=== PATIENT | male | born 1955 | race Caucasian/White ===

== ENCOUNTER 2023-05-05 12:02 | Outpatient (REF) | payer MEDICARE, OTHER, SELFPAY ==
--- NOTE | ~2023-05-05 | XR_ITS ---
EXAMINATION: XR SHOULDER, RIGHT CLINICAL INFORMATION: Pain. COMPARISON: None available. TECHNIQUE: Three views of the right shoulder. FINDINGS: Right shoulder arthroplasty. Age indeterminate periprosthetic fracture along the medial surface of the proximal right humerus. Mild superior subluxation of the humeral head prosthesis with respect to the glenoid. Nonspecific increased cortical lucency across the glenoid. Normal appearance of the acromioclavicular joint and coracoid process. Partially imaged right-sided ribs and right lung without significant abnormality. XR/XR shoulder RT min 2V IMPRESSION: 1. Age indeterminate periprosthetic fracture along the medial surface of the proximal right humerus. 2. Mild superior subluxation of the humeral head prosthesis with respect to the glenoid. 3. Increased cortical lucency of the glenoid, nonspecific may be related with prosthetic complication or degenerative changes. The report will be called to the ordering clinician by a [facility] Physician Deputy Prosecuting Attorney.
--- NOTE | ~2023-05-05 | XR_ITS ---
EXAMINATION: XR KNEE, LEFT XR KNEE AP STANDING CLINICAL INFORMATION: Pain. COMPARISON: None TECHNIQUE: Lateral and axial views of the left knee were obtained. AP bilateral standing view of the knees was obtained. FINDINGS: The lateral joint space compartment of the right knee is well-maintained. There is moderately severe narrowing of the medial joint space compartment of the right knee, with peripheral osteophyte formation. The lateral and medial joint of the left knee are well-maintained. There is slight narrowing and peripheral osteophyte formation of the patellofemoral compartment the left knee. No fracture, dislocation joint effusion is seen. XR/XR knee standing BI IMPRESSION: 1. No fracture, dislocation or joint effusion is seen. 2. There is moderately severe osteoarthritic change of the medial joint space compartment of the right knee. 3. There is minimal osteoarthritic change of the left patellofemoral compartment.
--- NOTE | ~2023-05-05 | XR_ITS ---
EXAMINATION: XR KNEE, LEFT XR KNEE AP STANDING CLINICAL INFORMATION: Pain. COMPARISON: None TECHNIQUE: Lateral and axial views of the left knee were obtained. AP bilateral standing view of the knees was obtained. FINDINGS: The lateral joint space compartment of the right knee is well-maintained. There is moderately severe narrowing of the medial joint space compartment of the right knee, with peripheral osteophyte formation. The lateral and medial joint of the left knee are well-maintained. There is slight narrowing and peripheral osteophyte formation of the patellofemoral compartment the left knee. No fracture, dislocation joint effusion is seen. XR/XR knee LT 2V IMPRESSION: 1. No fracture, dislocation or joint effusion is seen. 2. There is moderately severe osteoarthritic change of the medial joint space compartment of the right knee. 3. There is minimal osteoarthritic change of the left patellofemoral compartment.
== END 2023-05-05 12:03 | disposition home or self-care (01) ==
LOC: HO.HOSX 12:02
PROVIDERS: Visit Provider Orthopaedic Surgery
DX: M17.0 Bilateral primary osteoarthritis of knee (principal); Z96.611 Presence of right artificial shoulder joint
CPT/HCPCS: 20610; 73030; 73560; 73565; J0665; J1100

== ENCOUNTER 2023-05-05 12:19 | Outpatient (AMB) | payer MEDICARE, OTHER, SELFPAY ==
--- NOTE | 2023-05-05 12:39 | MHC.OFFVIS ---
Intake Vital Signs 05/05/23 12:40 Height 6 ft Intake Visit Reasons: [employer]-LT knee pain/probable sever OA Allergies No Known Allergies Allergy (Verified 05/05/23 12:41) HPI EN[employer] F[employer]ER-LT knee pain/probable sever OA HPI Details Alex is a a 67 year old male who presents today as a new patient with complaints of left knee pain. Patient reports that he has pain in bilateral knees, left worse than right. Pain increases with ambulation or increased activity as well as stairs. He is taking Oxycodone 15mg Q12H. He has has knee injections in the past but mostly for the right knee. The left knee pain is mostly medial and there is no associated injury. He also has pain in the right shoulder. He had a shoulder repalcement 10-15 years ago in [place]. He has difficulty with overhead activity but states it is tolerable . 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) Physical Exam Const General: cooperative, healthy appearing, no acute distress and well groomed Orientation/consciousness: oriented to person and oriented to place HEENT Head: Yes normal to inspection, Yes normocephalic and Yes atraumatic Eyes General: appearance normal, both eyes and all related structures Alignment and Position: alignment normal Conjunctivae: conjunctivae normal EOM: EOMs intact bilaterally Neck Neck: Yes normal visual inspection and Yes trachea midline Resp Other: No rerpiratory distress Effort & Inspection: normal respiratory effort and able to speak in complete sentences Cardio Other: Palpable radial pulse with no appreciable rythmic abnormalities GI Other: No abdominal distension Back/Spine/Pelvis Cervical Spine: normal cervical lordosis and cervical ROM normal Skin General skin exam: no rashes or lesions noted Neuro General: oriented to person, oriented to place and gait normal Extrem Other: TTP bilateral medial compartment and bilateral lateral retropatellar facet There is a trace effusion on the right and none of the left. There is neg Steinmen's Stable to v/v stress bilaterally. Right shoulder iwth ER to 25 deg 4/5 wekaness with [employer] c/d/i Office Procedures Joint Injection/Drain Joint Injection/Drain Details: Injected 1 mL of Decadron and 3 mL 1% lidocaine and 3 mL of 0.25% Marcaine. Site was prepped using aseptic technique. Patient tolerated the procedure well. Primary Site: right knee Secondary Site: left knee Approach Used: anterolateral Procedure: The patient tolerated the procedure well Coding - Large joint - Glenohumeral/Tronchanteric Bursa/Intraarticular Procedure code (CPT) selection complete Results Reviewed Results Reviewed: I personally reviewed relevant radiographs. Moderte tibiofemoral OA on the right Moderate-severe PF OA on the left Right shoulder with proximal migration of the prosthetic humeral head. No evidence of loosening Assessment & Plan Assessment & Plan (1) Localized osteoarthritis of knees, bilateral: Code(s): M17.0 - Bilateral primary osteoarthritis of knee Plan: Injected bilateral knees Discussed OA and recommend weight loss and stregthening Discussed PRP Follow up 3 mo (2) History of right shoulder replacement: Code(s): Z96.611 - Presence of right artificial shoulder joint Plan: I discussed my finding with Alex. He has right shoulder RTC deficiency in the setting of prior TSA. He states it is tolerable. If it becomes intolerable the surgical treatment would be conversion to a reverse. This is not appropriate yet. He understands this. Orders: Orders XR knee LT 2V 05/05/23 M25.569 - Pain in unspecified knee XR shoulder LT min 2V 05/05/23 M25.519 - Pain in unspecified shoulder XR knee standing BI 05/05/23 M25.569 - Pain in unspecified knee XR shoulder RT min 2V 05/05/23 M25.519 - Pain in unspecified shoulder Coding Level of Care Code New Pt Level 4 (80249) Diagnoses Localized osteoarthritis of knees, bilateral M17.0 History of right shoulder replacement Z96.611 CPT Codes Coding - Large joint: 99405 - Large joint ([id number]) Coding - Joint 7: 38476 - Glenohumeral/Tronchanteric Bursa/Intraarticular ([id number])
== END 2023-05-05 14:37 | disposition home or self-care (01) ==
PROVIDERS: PCP Family Medicine; Visit Provider Orthopaedic Surgery
DX: M17.0 Bilateral primary osteoarthritis of knee (principal); Z96.611 Presence of right artificial shoulder joint
CPT/HCPCS: 20610; 99204

== ENCOUNTER 2023-06-26 08:22 | Outpatient (AMB) | payer MEDICARE, OTHER, SELFPAY ==
--- NOTE | 2023-06-26 08:25 | A.OFFVIS_ITS ---
Vital Signs 06/26/23 08:26 Height 6 ft Weight 325 lb BMI 44.1 Intake Visit Reasons: O/V B/L knee pain s/p injection 05/05/23 Intake Note: Alex is a 67 year old male who presents today for a follow up of his Left Knee OA, Last Injection was done bilaterally on 05/05/23. PRP was discussed. Paidenis reports that the injection in the left knee was only helpful for about 2 days, and pain has significantly increased since then. The pain was so severe that he had to take a week from work and utilize a walker for ambulation. He is hoping to have an MRI The injection in the right knee however was helpful. Allergies No Known Allergies Allergy (Verified 05/05/23 12:41) HPI HPI O/V B/L knee pain s/p injection 05/05/23: Details: Alex is a 67 year old male who presents today for a follow up of his Left Knee OA, Last Injection was done bilaterally on 05/05/23. PRP was discussed. Paidenis reports that the injection in the left knee was only helpful for about 2 days, and pain has significantly increased since then. The pain was so severe that he had to take a week from work and utilize a walker for ambulation. He is hoping to have an MRI. The injection in the right knee however was helpful. 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 Lateral retropatellar TTP Assessment & Plan Assessment & Plan (1) Localized osteoarthritis of knees, bilateral: Code(s): M17.0 - Bilateral primary osteoarthritis of knee Category: Medical Plan: Steroid injections not helpful opn left. MOORE and possible PRP if not helpful. Plan We will submit for authorization for Euflexxa, Three series viscosupplementation as the cortisone was not helpful. We will contact patient once approval is recieved. Coding Level of Care Code Est Pt Level 3 (07650) Diagnoses Localized osteoarthritis of knees, bilateral M17.0
[2023-06-26 08:26] VITALS: BMI 44.1
== END 2023-06-26 08:59 | disposition home or self-care (01) ==
PROVIDERS: PCP Family Medicine; Visit Provider Orthopaedic Surgery
DX: M17.0 Bilateral primary osteoarthritis of knee (principal)
CPT/HCPCS: 99213

== ENCOUNTER → 2023-06-26 08:22 | Outpatient (BNVA) | payer OTHER, MEDICARE, SELFPAY | PROVIDERS: PCP Family Medicine; Visit Provider Orthopaedic Surgery ==

== ENCOUNTER 2023-07-28 12:01 | Outpatient (AMB) | payer MEDICARE, OTHER, SELFPAY ==
--- NOTE | 2023-07-28 12:09 | A.OFFVIS_ITS ---
Intake Visit Reasons: Left Knee Euflexxa #1 Intake Note: Alex is a 68 year old male who presents today for left knee Euflexxa injection #1 Allergies No Known Allergies Allergy (Verified 05/05/23 12:41) HPI HPI Left Knee Euflexxa #1: Details: Alex is a 68 year old male who presents today for left knee Euflexxa injection #1 PFSH Medical History (Updated 05/09/23 @ 11:52 by Sarthak Mccormack MD) Cardiac defibrillator in place Surgical History (Updated 05/09/23 @ 11:52 by Sarthak Mccormack MD) Hx of appendectomy Hx of cholecystectomy History of shoulder replacement (~2011) Social History (Updated 05/05/23 @ 12:45 by Stephanie Castillo CMA) Current occupational status: employed 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 Site was prepped using aseptic technique. Patient tolerated the procedure well. Primary Site: left knee Approach Used: anterolateral Coding - Large joint Procedure code (CPT) selection complete Assessment & Plan Assessment & Plan (1) Localized osteoarthritis of knees, bilateral: Code(s): M17.0 - Bilateral primary osteoarthritis of knee Category: Medical Plan I injected his left knee with Euflexxa 1 of 3, he will return next week for next injection of series Coding Level of Care Code Est Pt Level 2 (85248) Diagnoses Localized osteoarthritis of knees, bilateral M17.0 CPT Codes Coding - Large joint: 49877 - Large joint ([id number])
== END 2023-07-28 12:15 | disposition home or self-care (01) ==
PROVIDERS: PCP Family Medicine; Visit Provider Orthopaedic Surgery
DX: M17.0 Bilateral primary osteoarthritis of knee (principal)
CPT/HCPCS: 20610

== ENCOUNTER → 2023-07-28 12:01 | Outpatient (BNVA) | payer MEDICARE, OTHER, SELFPAY | PROVIDERS: PCP Family Medicine; Visit Provider Orthopaedic Surgery | DX: M17.0 Bilateral primary osteoarthritis of knee (principal) | CPT/HCPCS: 20610; J7323 ==

== ENCOUNTER 2023-08-04 13:50 | Outpatient (AMB) | payer MEDICARE, OTHER, SELFPAY ==
[2023-08-04 14:06] VITALS: BMI 31.9
--- NOTE | 2023-08-04 14:06 | A.OFFVIS_ITS ---
Vital Signs 08/04/23 14:06 Height 6 ft Weight 235 lb BMI 31.9 Intake Visit Reasons: Left Knee Euflexxa#2 Intake Note: Alex is a 68 year old male who presents today for his left knee Euflexxa #2. Patient reports that the fist injection has provided him with significant relief. Allergies No Known Allergies Allergy (Verified 05/05/23 12:41) PFSH Medical History (Updated 05/09/23 @ 11:52 by Sarthak Mccormack MD) Cardiac defibrillator in place Surgical History (Updated 05/09/23 @ 11:52 by Sarthak Mccormack MD) Hx of appendectomy Hx of cholecystectomy History of shoulder replacement (~2011) Social History (Updated 05/05/23 @ 12:45 by Stephanie Castillo CMA) Current occupational status: employed Current occupation: [employer] (Construction) Physical Exam Vital Signs: BMI result Body Mass Index 31.9 Extrem Other: skin c/d/i Office Procedures Joint Injection/Drain Joint Injection/Drain Details: Injected Euflexxa. Site was prepped using aseptic technique. Patient tolerated the procedure well. Coding - Large joint Procedure code (CPT) selection complete Assessment & Plan Assessment & Plan (1) Localized osteoarthritis of knees, bilateral: Code(s): M17.0 - Bilateral primary osteoarthritis of knee Category: Medical Plan: I injected his left knee with the 2nd of three Euflexxa Injections. He will return in one week for his final injection of the series. Coding Level of Care Code Est Pt Level 2 (83734) Diagnoses Localized osteoarthritis of knees, bilateral M17.0 CPT Codes Coding - Large joint: 38895 - Large joint ([id number])
== END 2023-08-04 14:24 | disposition home or self-care (01) ==
PROVIDERS: PCP Family Medicine; Visit Provider Orthopaedic Surgery
DX: M17.0 Bilateral primary osteoarthritis of knee (principal)
CPT/HCPCS: 20610

== ENCOUNTER → 2023-08-04 13:50 | Outpatient (BNVA) | payer MEDICARE, OTHER, SELFPAY | PROVIDERS: PCP Family Medicine; Visit Provider Orthopaedic Surgery | DX: M17.0 Bilateral primary osteoarthritis of knee (principal) | CPT/HCPCS: 20610; J7323 ==

== ENCOUNTER 2023-08-11 13:49 | Outpatient (AMB) | payer MEDICARE, OTHER, SELFPAY ==
--- NOTE | 2023-08-11 14:07 | A.OFFVIS_ITS ---
Vital Signs 08/11/23 14:09 Height 6 ft Weight 235 lb BMI 31.9 Intake Visit Reasons: Left Knee Euflexxa #3 Intake Note: Alex is a 68 year old male who presents today for his 3rd left knee Euflexxa injection. Patient reports he has been noticing improvement. Allergies No Known Allergies Allergy (Verified 08/11/23 14:09) HPI HPI Left Knee Euflexxa #3: Details: Alex is a 68 year old male who presents today for his 3rd left knee Euflexxa injection. Patient reports he has been noticing improvement. 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 Site was prepped using aseptic technique. Patient tolerated the procedure well. Primary Site: left knee Approach Used: anterolateral Coding - Large joint Procedure code (CPT) selection complete Assessment & Plan Assessment & Plan (1) Localized osteoarthritis of knees, bilateral: Code(s): M17.0 - Bilateral primary osteoarthritis of knee Category: Medical Plan: 3rd Euflexxa injection. May f/u in 3 months. Coding Level of Care Code Est Pt Level 2 (22529) Diagnoses Localized osteoarthritis of knees, bilateral M17.0 CPT Codes Coding - Large joint: 02476 - Large joint ([id number])
[2023-08-11 14:09] VITALS: BMI 31.9
== END 2023-08-11 14:25 | disposition home or self-care (01) ==
PROVIDERS: PCP Family Medicine; Visit Provider Orthopaedic Surgery
DX: M17.0 Bilateral primary osteoarthritis of knee (principal)
CPT/HCPCS: 20610

== ENCOUNTER → 2023-08-11 13:49 | Outpatient (BNVA) | payer MEDICARE, OTHER, SELFPAY | PROVIDERS: PCP Family Medicine; Visit Provider Orthopaedic Surgery | DX: M17.0 Bilateral primary osteoarthritis of knee (principal) | CPT/HCPCS: 20610; J7323 ==

== ENCOUNTER 2024-09-24 08:09 | Outpatient (REF) | payer MEDICARE, OTHER, SELFPAY ==
--- NOTE | ~2024-09-24 | XR_ITS ---
EXAMINATION: XR SHOULDER, LEFT CLINICAL INFORMATION: M25.512 - Pain in left shoulder COMPARISON: None available. TECHNIQUE: Three views of the left shoulder. FINDINGS: Axillary view is limited due to overlying soft tissues. There is inadequate coverage of the glenoid. Normal bone mineralization. No fracture, dislocation, or suspicious bone lesion. Normal alignment. The glenohumeral joint demonstrates mild degenerative arthritis. There is a subchondral cyst in the mid glenoid. The AC joint demonstrates mild superior surface spurring. There is a type II acromion. No undersurface spurring. The subacromial space is preserved. Left-sided single-lead pacer device noted in place. Remainder of the bony and soft tissue structures appear normal. XR/XR shoulder LT min 2V IMPRESSION: 1. No acute bony abnormalities of the left shoulder. 2. Mild degenerative arthritis in the glenohumeral joint and AC joint. Electronically signed by: Geremias Lopez MD 09/24/2024 09:09 AM EDT
--- OUTSIDE RECORDS SUMMARY | 2024-09-27 08:23 | XMS_ITS ---
Author Organization [facility] Care Team Providers Care Pediatric Ophthalmologist Name Role Phone Zion Moreland Unavailable Unavailable Allergies and adverse reactions Code CodeSystem Substance Reaction Severity StartDate Concern Status Codeine Unknown Unknown active Care Team Name Role Address Phone Organization Dates Zion Moreland [address] [place] [address], [phone], [place] (Office[place] : [facility] [place] 01/14/2010 - 01/16/2010 Mental Status Section Date Assessment Total Score Description 01/16/2010 BIMS 15 cognitively int act PHQ-9 00 Reason for Referral No Reasons for Referral Entered Social History Social History Observation Description Start Date End Date Code Code System Current Smoking Status Tobacco smoking consumption unknown [id number] SNOMED CT Sex Assigned At Male 1955 [address]-4 [facility] Gender Identity
== END 2024-09-24 08:10 | disposition home or self-care (01) ==
LOC: HO.HOSX 08:09
PROVIDERS: Visit Provider Physician Assistant
DX: M75.22 Bicipital tendinitis, left shoulder (principal); M19.012 Primary osteoarthritis, left shoulder
CPT/HCPCS: 20610; 73030; 99212; J1010; J2003

== ENCOUNTER 2024-09-24 08:45 | Outpatient (AMB) | payer MEDICARE, OTHER, SELFPAY ==
--- OUTSIDE RECORDS SUMMARY | 2024-09-24 08:56 | XMS_ITS ---
Author Organization [facility] Care Team Providers Care Pmp Name Role Phone Zion Moreland Unavailable Unavailable Allergies and adverse reactions Code CodeSystem Substance Reaction Severity StartDate Concern Status Codeine Unknown Unknown active Care Team Name Role Address Phone Organization Dates Zion Moreland [address] [place] [address], [phone], [place] (Office): : [facility] [place] 01/14/2010 - 01/16/2010 Mental Status Section Date Assessment Total Score Description 01/16/2010 BIMS 15 cognitively int act PHQ-9 00 Reason for Referral No Reasons for Referral Entered Social History Social History Observation Description Start Date End Date Code Code System Current Smoking Status Tobacco smoking consumption unknown 088225993 SNOMED CT Sex Assigned At Male 1955 [address]-0 [facility] Gender Identity
[2024-09-24 09:12] VITALS: BMI 44.8
--- NOTE | 2024-09-24 09:12 | A.OFFVIS_ITS ---
Vital Signs 09/24/24 09:12 Height 6 ft Weight 330 lb BMI 44.8 Intake Visit Reasons: NewProb- Left shoulder pain Intake Note: Alex is a 69 year old left hand dominant male who presents today as an established patient, new problem visit with complaints of left shoulder pain. History of right shoulder arthroplasty. Patient reports 6 weeks of persistent pain. Denies injury. His pain is located at the anterior aspect of shoulder and at times travels up his neck and down his arm. He feels pain with ROM. His acupuncture therapist provided him with shoulder massages that helped a little. No other treatments. Allergies No Known Allergies Allergy (Verified 09/24/24 09:14) Medication List - Last Reconciled 09/24/24 by Maria E Wellington PA-C amiodarone 400 mg PO DAILY apixaban (Eliquis) 5 mg PO BID cyclobenzaprine 10 mg PO BEDTIME duloxetine 20 mg PO BID hydrochlorothiazide 25 mg PO DAILY losartan 100 mg PO DAILY oxycodone 10 mg PO TID PRN oxycodone ER (OxyContin) 15 mg PO Q12H sotalol 80 mg PO BID HPI HPI NewProb- Left shoulder pain: Details: 69 yo male presents to the office today for left shoulder pain. He states he has had pain x6 weeks, denies injury. He thought he slept on it wrong. He states the pain has slightly improved, he had a lot of pain with reaching behind his body. He states the pain is located along the proximal bicep. He states there is mild discomfort in the left shoulder with sleeping. He has some pain in the left side of the neck which extends down into the trap . He denies n/t down the arm into the fingers. 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 Positive [place]'s. Tenderness to palpation over the proximal biceps tendon. 5/5 rotator cuff strength. Neurovascularly intact. Office Procedures AMB Joint Injection/Aspiration Joint Injection/Aspiration Primary Site: left shoulder Prep: site was prepped using aseptic technique, ethochloride spray was applied and injection warnings given Injected: 80 mg of, DepoMedrol, with 8 mL of, 1% plain lidocaine and in the subcromial space Approach Used: posterolateral Procedure: The patient tolerated the procedure well and there was some relief with the local anesthesia Coding 03689 - Glenohumeral/Tronchanteric Bursa/Intraarticular Procedure code (CPT) selection complete Results Reviewed Results Reviewed: XR shoulder LT min 2V IMPRESSION: 1. No acute bony abnormalities of the left shoulder. 2. Mild degenerative arthritis in the glenohumeral joint and AC joint. Assessment & Plan Assessment & Plan (1) Bicipital tendinitis, left shoulder: Code(s): M75.22 - Bicipital tendinitis, left shoulder Category: Medical (2) Osteoarthritis of left acromioclavicular joint: Code(s): M19.012 - Primary osteoarthritis, left shoulder Category: Medical Plan We discussed options today which includes physical therapy. An order was placed and I gave him the contact information however he is unsure if he is able to go at this time. We did discuss the role of steroid injection and how this can help with his pain and inflammation. He is interested in a steroid injection today to the left shoulder. Injection was performed which she tolerated well. He will increase activities as tolerated and if symptoms persist or worsen over the next 8-12 weeks the patient will contact our office otherwise follow up as needed. Orders: Orders XR shoulder LT min 2V Today M25.512 - Pain in left shoulder Coding Level of Care Code Est Pt Level 3 (38397) Complex EM visit Add On G2211 Diagnoses Bicipital tendinitis, left shoulder M75.22 Osteoarthritis of left acromioclavicular joint M19.012 CPT Codes Coding - Joint 7: 13235 - Glenohumeral/Tronchanteric Bursa/Intraarticular ([id number])
== END 2024-09-24 09:55 | disposition home or self-care (01) ==
LOC: HO.HOS 08:45
PROVIDERS: PCP Family Medicine; Visit Provider Physician Assistant
DX: M75.22 Bicipital tendinitis, left shoulder (principal); M19.012 Primary osteoarthritis, left shoulder
CPT/HCPCS: 20610; 99213

== ENCOUNTER → 2024-09-24 08:52 | Outpatient (BNV) | payer MEDICARE, OTHER, SELFPAY | PROVIDERS: Visit Provider Radiology Diagnostic Radiology | DX: M19.012 Primary osteoarthritis, left shoulder (principal) | CPT/HCPCS: 73030 ==